=== PATIENT | female | born 1985 | race Caucasian/White ===

== ENCOUNTER 2017-09-04 14:28 | Emergency (ER) | payer OTHER ==
[~2017-09-04] VITALS: Ht 162.6 cm; Wt 77.1 kg
[2017-09-04 14:33] VITALS: BP 132/71
[2017-09-04] MEDS ORDERED: DEXAMETHASONE SOD PHOSPHATE 10 MG/ML VIAL ONE (14:56)
[2017-09-04] MEDS ORDERED: HYDROCODONE BIT/HOMATROPINE 5 ML UDC PO ONE (15:00)
[2017-09-04] MEDS ORDERED: ALBUTEROL FS 2.5 MG/0.5 ML VIAL.NEB NEB ONE (15:00)
[2017-09-04] MEDS ORDERED: IPRATROPIUM NEB FS 0.5 MG/2.5 ML AMPUL.NEB NEB ONE (15:00)
[2017-09-04] MEDS ORDERED: DEXAMETHASONE SOD PHOSPHATE 4 MG/ML VIAL MC ONE (15:00)
[2017-09-04] MEDS ORDERED: HYDROCODONE BIT/HOMATROPINE 5 ML UDC ONE (15:01)
[2017-09-04] MEDS ORDERED: IPRATROPIUM NEB FS 0.5 MG/2.5 ML AMPUL.NEB ONE (15:08)
[2017-09-04] MEDS ORDERED: ALBUTEROL FS 2.5 MG/0.5 ML VIAL.NEB ONE (15:08)
== END 2017-09-04 16:08 | disposition home or self-care (01) ==
LOC: ER 14:31
DX: J40 Bronchitis, not specified as acute or chronic (principal); R06.2 Wheezing; F17.210 Nicotine dependence, cigarettes, uncomplicated
CPT/HCPCS: 71010; 94640; 99283; 99406; A4606; J1100; Z7610

== ENCOUNTER 2019-01-14 21:25 | Emergency (ER) | payer OTHER | END 2019-01-14 22:11 | disposition left against medical advice (07) | LOC: ER 21:36 | DX: Z53.21 Procedure and treatment not carried out due to patient leaving prior to being seen by health care provider (principal) ==

== ENCOUNTER 2019-01-15 19:41 | Emergency (ER) | payer MEDICAID, OTHER ==
[~2019-01-15] VITALS: Ht 162.6 cm; Wt 72.7 kg
--- NOTE | 2019-01-15 19:48 | NUR ---
CALLED IN WAITING ROOM, NO ANSWER.
[2019-01-15 19:49] VITALS: BP 106/69
[2019-01-15] MEDS ORDERED: IBUPROFEN 600 MG TABLET PO ONE ×2 (20:25→20:30)
[2019-01-15] MEDS ORDERED: AMOXICILLIN TRIHYDRATE 250 MG CAPSULE ONE ×2 (20:25→20:26)
[2019-01-15] MEDS ORDERED: HYDROCODONE/APAP 5/325MG 1 EACH TABLET ONE (20:25)
[2019-01-15] MEDS ORDERED: AMOXICILLIN TRIHYDRATE 250 MG CAPSULE PO ONE (20:30)
[2019-01-15] MEDS ORDERED: HYDROCODONE/APAP 5/325MG 1 EACH TABLET PO ONE (20:30)
== END 2019-01-15 20:33 | disposition home or self-care (01) ==
LOC: ER 19:50
DX: K08.89 Other specified disorders of teeth and supporting structures (principal); K04.7 Periapical abscess without sinus; Z98.890 Other specified postprocedural states

== ENCOUNTER 2019-01-15 22:05 | Emergency (ER) | payer MEDICAID ==
[~2019-01-15] VITALS: Ht 162.6 cm; Wt 72.6 kg
[2019-01-15] MEDS ORDERED: HYDROMORPHONE 1 MG/1 ML DISP.SYRIN ONE (22:53)
[2019-01-15] MEDS ORDERED: HYDROMORPHONE INJ 0.5 MG/0.5 ML SYRINGE IM ONE (23:00)
[2019-01-15 23:45] VITALS: BP 120/78
== END 2019-01-15 23:51 | disposition home or self-care (01) ==
LOC: ER 22:11
DX: K08.89 Other specified disorders of teeth and supporting structures (principal); K04.7 Periapical abscess without sinus; Z98.890 Other specified postprocedural states
CPT/HCPCS: 96372; 99283; J1170

== ENCOUNTER 2024-09-16 13:51 | Emergency (ER) | payer MEDICAID ==
[~2024-09-16] VITALS: Ht 157.5 cm; Wt 93.0 kg
[2024-09-16 14:03] VITALS: BP 129/94; TEMP 97.9
[2024-09-16] MEDS ORDERED: IBUP-1955 PO (15:51)
[2024-09-16 16:20] VITALS: O2SAT 99
== END 2024-09-16 16:20 | disposition home or self-care (01) ==
LOC: ER 13:54
DX: S92.421A Displaced fracture of distal phalanx of right great toe, initial encounter for closed fracture (principal); M79.674 Pain in right toe(s); W22.09XA Striking against other stationary object, initial encounter; Y93.89 Activity, other specified; Y92.89 Other specified places as the place of occurrence of the external cause; Y99.8 Other external cause status
CPT/HCPCS: 73660-TC